=== PATIENT | female | born 1995 | race Caucasian/White ===

== ENCOUNTER 2016-07-18 09:35 | Outpatient (CLI) | payer OTHER, MEDICAID | END 2016-07-18 09:36 | disposition home or self-care (01) | DX: E03.9 Hypothyroidism, unspecified (principal); O99.013 Anemia complicating pregnancy, third trimester ==

== ENCOUNTER 2016-12-23 12:00 | Outpatient (CLI) | payer OTHER, MEDICAID | END 2016-12-23 12:01 | disposition critical access hospital (66) | LOC: EMS 12:00 | PROVIDERS: ATTEND Surgery | DX: S61.411A Laceration without foreign body of right hand, initial encounter (principal); W26.0XXA Contact with knife, initial encounter; Y93.G1 Activity, food preparation and clean up; Y92.009 Unspecified place in unspecified non-institutional (private) residence as the place of occurrence of the external cause | CPT/HCPCS: A0425; A0429 ==

== ENCOUNTER 2016-12-23 12:37 | Emergency (ER) | payer OTHER, MEDICAID ==
[2016-12-23 12:43] VITALS: BP 92/63
[2016-12-23] MEDS ORDERED: TETANUS/DIPHTHERIA/PERTUSSIS 0.5 ML SYRINGE IM ONE ×2 (12:44→12:55)
--- NOTE | 2016-12-23 13:15 | ED Physician Documentation ---
PD HPI UPPER EXT INJURY - Stated complaint Stated Complaint: R HAND LAC - Chief complaint Chief Complaint: Laceration - History obtained from History obtained from: Patient - History of Present Illness Location: Right, Hand Type of injury: Laceration Where injury occurred: Home Timing - onset: Today Timing - duration: Hours Timing - details: Abrupt onset, Still present Improved by: Rest, Immobilization Worsened by: Moving, Palpating Associated symptoms: Weakness, Numbness Contributing factors: No: Anticoagulated Similar symptoms before: Has not had sx before Recently seen: Not recently seen - Additonal information Additional information: 21-year-old female was preparing dinner for her family when she slipped with a polystyrene bead molder knife and cut the palm of her right hand. She has lacerated the palmar surface and is not able to flex the fourth or fifth digit and has numbness to both digits as well. Review of Systems Constitutional: denies: Fever Eyes: denies: Decreased vision Ears: denies: Ear pain Nose: denies: Congestion Throat: denies: Sore throat Cardiac: denies: Chest pain / pressure Respiratory: denies: Cough GI: denies: Vomiting : denies: Dysuria Skin: reports: Laceration (s). denies: Rash Musculoskeletal: reports: Extremity pain. denies: Neck pain, Back pain Neurologic: reports: Focal weakness, Numbness. denies: Generalized weakness PD PAST MEDICAL HISTORY - Past Medical History Cardiovascular: None Respiratory: None Endocrine/Autoimmune: None GI: Other : None HEENT: None Psych: Panic attacks Musculoskeletal: None Derm: None - Past Surgical History Past Surgical History: Yes - Present Medications Home Medications: Ambulatory Orders Medication Instructions Recorded Confirmed Doxylamine Succinate [Wal-Jhon] 25 mg PO Q6H PRN #30 tablet 12/08/15 Promethazine [Phenergan] 25 mg PO Q6H PRN #30 tab 12/08/15 Pyridoxine HCl [Vitamin B-6] 250 mg PO BID #60 tablet 12/08/15 Promethazine Sup [Phenergan Supp] 12.5 mg VA Q8H PRN #10 supp 12/19/15 - Allergies Allergies/Adverse Reactions: Allergies Allergy/AdvReac Type Severity Reaction Status Date / Time ondansetron HCl * AdvReac Nausea Verified 12/07/15 21:59 [From Zofran (as hydrochloride)] - Social History Does the pt smoke?: No Smoking Status: Former smoker Does the pt drink ETOH?: No Does the pt have substance abuse?: Yes - Immunizations Immunizations are current?: Yes - POLST Patient has POLST: No PD ED PE NORMAL - Vitals Vital signs reviewed: Yes (normal ) - General General: Alert and oriented X 3, Well developed/nourished - HEENT HEENT: Atraumatic, PERRL - Respiratory Respiratory: No respiratory distress - Derm Derm: Normal color, Warm and dry, No rash - Extremities Extremities: Other (over the palmar surface of the right hand there is a 3.5cm laceration over the distal 1/3 of the metacarpals that is deep. She is not able to flex the 4th or 5th digits and she has numbness to the 4th and 5th digits as well. ) - Neuro Neuro: Normal speech - Psych Psych: Normal mood, Normal affect Results - Vitals Vitals: Vital Signs - 24 hr 12/23/16 12:41 Temperature 36.8 C Heart Rate 87 Respiratory 18 Rate Blood Pressure 92/63 O2 Saturation 98 Oxygen O2 Source Room air - Rads (name of study) Right hand Radiology: Prelim report reviewed (Impression: Persistent extension of the fourth and fifth digits consistent with the given history. No fracture or radiopaque foreign body.), EMP read indepedently, See rad report Procedures - Splint (location) right wrist Splint applied by: Tech Type of splint: Fiberglass, Other (volar flexion splint) Other: Patient tolerated well, No complications, Neurovascular intact, Good alignment PD MEDICAL DECISION MAKING - ED course Complexity details: reviewed results, re-evaluated patient, considered differential, d/w patient, d/w family, d/w enterprise resource planning consultant (Dr. Horan was consulted and the case recommends consultation of hand surgery.) ED course: 21-year-old female otherwise healthy has lacerated her right hand deeply with laceration of the flexor tendons of #4 and 5 as well as digital nerves. She does appear to have good capillary refill and there does not appear to be arterial bleeding present And the patient confirms that at the scene there was no arterial bleeding present. She does have sensation to the radial surface of #4. Dr. Stevie Sotomayor plastic surgery from [facility] in [place] customer contact representative hand surgery is consulted in the case by telephone and he has accepted the patient in transfer to his office for evaluation today with the plan to operate tomorrow , potentially. He requests the patient be dressed with Xeroform and placed into a volar splint in flexion. Departure - Departure Disposition: 01 Home, Self Care Clinical Impression: Laceration of right hand involving tendon Qualifiers: Encounter type: initial encounter Qualified Code(s): S61.411A - Laceration without foreign body of right hand, initial encounter Condition: Stable Instructions: ED Laceration Tendon Follow-Up: Stevie Sotomayor MD [Physician No Access] - Comments: Follow up now with Dr. Stevie Sotomayor MD in [place]. [phone] [id number] [facility] [id number]. Do not eat or drink on your way to the doctors office.
--- NOTE | 2016-12-23 13:43 | XRAY Preliminary Report ---
Exam: XR Hand 3 View RT IMPRESSION: Persistent extension of the fourth and fifth digits consistent with the given history. No fracture or radiopaque foreign body. [facility] SITE ID: [id number]
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
[2016-12-23] MEDS ORDERED: HYDROcod/ACETAM 5/325 MG TABLET PO STA (13:47)
[2016-12-23] MEDS ORDERED: HYDROcod/ACETAM 5/325 MG TABLET ONE (13:49)
== END 2016-12-23 14:28 | disposition home or self-care (01) ==
LOC: EDUNIT# → ED 12:37
DX: S66.821A Laceration of other specified muscles, fascia and tendons at wrist and hand level, right hand, initial encounter (principal); S61.411A Laceration without foreign body of right hand, initial encounter; W26.0XXA Contact with knife, initial encounter; Y93.G1 Activity, food preparation and clean up; Y92.009 Unspecified place in unspecified non-institutional (private) residence as the place of occurrence of the external cause; Z23 Encounter for immunization; Z87.891 Personal history of nicotine dependence
CPT/HCPCS: 29125; 73130; 90471; 90715; 99283; 99284; A9270

== ENCOUNTER 2017-03-24 17:41 | Emergency (ER) | payer MEDICAID, OTHER ==
[2017-03-24 17:56] VITALS: BP 96/61
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
[2017-03-24] MEDS ORDERED: HYDROcod/ACETAM 5/325 MG TABLET PO STA (20:00)
[2017-03-24] MEDS ORDERED: HYDROcod/ACET 5/325 Prepack 6 PO ONE ×2 (20:00→20:16)
[2017-03-24] MEDS ORDERED: METHOCARBAMOL 500 MG TABLET PO STA (20:00)
[2017-03-24] MEDS ORDERED: METHOCARBAMOL 500 MG TABLET PO ONE (20:16)
[2017-03-24] MEDS ORDERED: HYDROcod/ACETAM 5/325 MG TABLET ONE (20:16)
--- NOTE | 2017-03-24 20:48 | XRAY Preliminary Report ---
Exam: XR Thoracic Spine 2 View IMPRESSION: Normal thoracic spine radiography. [facility] SITE ID: [id number]
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
== END 2017-03-24 22:48 | disposition home or self-care (01) ==
LOC: ED 17:41
DX: S20.222A Contusion of left back wall of thorax, initial encounter (principal); Y08.89XA Assault by other specified means, initial encounter; Y92.009 Unspecified place in unspecified non-institutional (private) residence as the place of occurrence of the external cause
CPT/HCPCS: 72070; 99283; A9270

== ENCOUNTER 2018-03-09 15:18 | Outpatient (CLI) | payer MEDICAID ==
--- NOTE | 2018-03-09 18:46 | Ultrasound Report ---
Reason: ENCOUNTER FOR PREGNANY TEST,RESULT POSITIVE Procedure Date: 03/09/2018 Accession Number: [id number] / [id number] Procedure: US - OB First Trimester CPT Code: FULL RESULT: EXAM: FIRST TRIMESTER OBSTETRIC ULTRASOUND (Less than 11 weeks) EXAM DATE: 03/09/2018 04:00 PM. CLINICAL HISTORY: Encounter for test, result positive. LMP: Unknown. COMPARISONS: None. TECHNIQUE: Transabdominal and transvaginal ultrasound examination with static image documentation. CLINICAL DATES: Unknown. ASSESSMENT: Gestational Sac: Single intrauterine. Embryo: CRL (crown-rump length) 77.2 mm = 13 weeks 5 days. Cardiac activity: 163 beats per minute. Yolk sac: None detected. Amniotic fluid: Not accurately assessed at this gestational age. Early placenta: Anterior placenta. No gross previa or abruption. Other: No perigestational fluid collection demonstrated. MATERNAL STRUCTURES: Uterus: Anteverted. Unremarkable. Cervix: Closed. Right Ovary/Adnexa: Ovary not seen. No adnexal abnormality. Limitation secondary to bowel gas. Left Ovary/Adnexa: Ovary not seen. No adnexal abnormality. Limitation secondary to bowel gas. Free Fluid: None. Unremarkable. Other: None. IMPRESSION: 1. Single viable intrauterine at EGA 13 weeks 5 days with NORA 09/09/2018. Unknown LMP. 2. Assigned dating is NORA 09/09/2018 based on current ultrasound. 3. No subchorionic hemorrhage or other concerning features. 4. Neither ovary was seen. No adnexal lesions concerning for an ectopic . [facility]
== END 2018-03-09 15:19 | disposition home or self-care (01) ==
LOC: DI 15:18
PROVIDERS: ATTEND Registered Nurse
DX: Z32.01 Encounter for pregnancy test, result positive (principal)
CPT/HCPCS: 76801

== ENCOUNTER 2018-03-23 09:49 | Emergency (ER) | payer MEDICAID ==
[2018-03-23 10:10] VITALS: BP 112/78
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
== END 2018-03-23 10:30 | disposition left against medical advice (07) ==
LOC: ED 09:49
DX: Z53.21 Procedure and treatment not carried out due to patient leaving prior to being seen by health care provider (principal)

== ENCOUNTER 2018-03-24 11:01 | Outpatient (CLI) | payer MEDICAID ==
[2018-03-24 11:53] LABS: BASOPHILS # (AUTO) 0.1 10^3/uL (0.0-0.1); BASOPHILS % (AUTO) 0.4 %; EOSINOPHILS % (AUTO) 0.1 %; HGB - HEMOGLOBIN 12.4 g/dL (12.0-16.0); LYMPHOCYTES # (AUTO) 4.1 10^3/uL (1.5-3.5); LYMPHOCYTES % (AUTO) 27.8 %; MEAN CORPUSCULAR HEMOGLOBIN 30.3 pg (27.0-31.0); MEAN CORPUSCULAR VOLUME 89.1 fL (81.0-99.0); MEAN PLATELET VOLUME 7.2 fL (7.9-10.8); MONOCYTES # (AUTO) 0.8 10^3/uL (0.0-1.0); MONOCYTES % (AUTO) 5.3 %; NEUTROPHILS # (AUTO) 9.7 10^3/uL (1.5-6.6); NEUTROPHILS % (AUTO) 66.4 %; PLT - PLATELET COUNT 381 10^3/uL (130-450); RED BLOOD COUNT 4.09 10^6/uL (4.20-5.40); RED CELL DISTRIBUTION WIDTH 13.1 % (12.0-15.0); WHITE BLOOD COUNT 14.6 x10^3/uL (4.8-10.8)
[2018-03-24 12:09] LABS: BILIRUBIN,URINE NEGATIVE (NEGATIVE); GLUCOSE, URINE (UA) NEGATIVE (NEGATIVE); KETONES,URINE (UA) NEGATIVE (NEGATIVE); LEUKOCYTE ESTERASE, URINE MODERATE (NEGATIVE); NITRITE,URINE NEGATIVE (NEGATIVE); OCCULT BLOOD,URINE NEGATIVE (NEGATIVE); PH,URINE 6.5 PH (5.0-7.5); PROTEIN,URINE NEGATIVE (NEGATIVE); UROBILINOGEN,URINE 0.2 (NORMAL) E.U./dL (NORMAL)
[2018-03-24 12:19] LABS: CLARITY,URINE HAZY (CLEAR)
[2018-03-24 12:20] LABS: BACTERIA,URINE Few /HPF (None Seen); MUCUS,URINE Moderate Strands; RBC,URINE 0-5 /HPF (0-5); SQUAMOUS EPITHELIAL CELL,UR MANY Squamous (<= Few)
[2018-03-24 13:46] LABS: T4 (THYROXINE) 10.18 ug/dL (6.09-12.23)
[2018-03-24 13:49] LABS: THYROID STIMULATING HORMONE 1.78 uIU/mL (0.34-5.60)
[2018-03-24 13:56] LABS: TOTAL T3 1.94 ng/mL (0.87-1.78)
[2018-03-25 13:22] LABS: HEPATITIS C ANTIBODY NON-REACTIVE (NON-REACTIVE)
[2018-03-25 14:51] LABS: HIV AG/AB 4TH GEN NON-REACTIVE (NON-REACTIVE)
[2018-03-25 15:06] LABS: HEPATITIS B SURFACE ANTIGEN NON-REACTIVE (NON-REACTIVE)
== END 2018-03-24 11:02 | disposition home or self-care (01) ==
LOC: LAB 11:01
PROVIDERS: ATTEND Nurse Practitioner Obstetrics & Gynecology
DX: Z34.81 Encounter for supervision of other normal pregnancy, first trimester (principal)
CPT/HCPCS: 36415; 80306; 81001; 81599; 84436; 84443; 84480; 85025; 86592; 86762; 86803; 86850; 86900; 86901; 87340; 87389

== ENCOUNTER 2018-03-24 11:17 | Outpatient (CLI) | payer MEDICAID ==
[2018-03-24 14:22] LABS: MUDS CUTOFF CONCENTRATIONS CUTOFF CONC BELOW:
[2018-03-24 14:43] LABS: AMPHETAMINE SCREEN,URINE POSITIVE (NEGATIVE); BENZODIAZEPINES SCREEN, URINE NEGATIVE (NEGATIVE); COCAINE SCREEN URINE NEGATIVE (NEGATIVE); METHADONE SCREEN, URINE NEGATIVE (NEGATIVE); METHAMPHETAMINES SCREEN, URINE POSITIVE (NEGATIVE); OPIATE SCREEN, URINE NEGATIVE (NEGATIVE); OXYCODONE SCREEN, URINE NEGATIVE (NEGATIVE); PROPOXYPHENE SCREEN, URINE NEGATIVE (NEGATIVE); TRICYCLIC ANTIDEPRESSANT,URINE NEGATIVE (NEGATIVE)
== END 2018-03-24 11:18 | disposition home or self-care (01) ==
LOC: LAB.R 11:17
PROVIDERS: ATTEND Nurse Practitioner Obstetrics & Gynecology
DX: Z34.81 Encounter for supervision of other normal pregnancy, first trimester (principal)
CPT/HCPCS: 80306

== ENCOUNTER 2018-04-26 12:41 | Outpatient (CLI) | payer MEDICAID ==
--- NOTE | 2018-04-27 14:15 | Ultrasound Report ---
Reason: ENCTR FOR SCREENING Procedure Date: 04/26/2018 Accession Number: [id number] / [id number] Procedure: US - OB Detailed Eval CPT Code: FULL RESULT: EXAM: COMPLETE OBSTETRICAL ULTRASOUND EXAM DATE: 04/26/2018 03:16 PM. CLINICAL HISTORY: anatomic survey. COMPARISON: None. TECHNIQUE: Real-time sonographic evaluation of the fetus performed by the saturation diver. Multiple textile designs sales representative static images were saved for review. DATING: Established EGA 20 weeks 4 days with NORA 09/09/2018 based on prior ultrasound. EGA 19 weeks 4 days with NORA 09/16/2018 based on the current ultrasound. GENERAL EVALUATION Thompson . Cardiac activity: 148 bpm. movement: Visualized. Presentation: Cephalic. Placenta: Anterior position. No evidence for previa. Umbilical cord: 3 vessel cord. Central placental cord origin. Amniotic fluid: CRYSTAL 11.6 MVP 3.6 cm. BIOMETRY Bi-Parietal Diameter (BPD): 4.4 cm, 19 weeks 2 days Head Circumference (HC): 16.6 cm, 19 weeks 2 days Abdominal Circumference (AC): 13.8 cm, 19 weeks 2 days Femur Length (FL): 3.3 cm, 20 weeks 3 days Estimated Weight: 311 g, 12th percentile for 20 weeks 4 days. ANATOMY The intracranial structures, profile, face/nose/lips, spine, 4 chamber heart and outflow tracts, stomach, abdominal wall and cord insertion, diaphragm, kidneys, bladder, and extremities were visualized and demonstrate no abnormality. MATERNAL STRUCTURES Uterus: Unremarkable. Cervix: Long and closed. Transabdominal length 4.2 cm. Right ovary/adnexa: Unremarkable. Left ovary/adnexa: Unremarkable. Free fluid: None. IMPRESSION: 1. Thompson live intrauterine with gestational age 20 weeks 4 days based on the established due date from the initial ultrasound. 2. The estimated weight is at the lower limits of normal. While this does not meet criteria for IUGR at this time, consideration could be given to interval ultrasound follow-up if clinically indicated. 3. Normal anatomic survey. No anatomic abnormalities are detected at this time. HONEY The above findings of low estimated weight were discussed with the office of [facility] Del Valle by Dr. Kermit Webster at 14:13 hrs on 04/27/18.
== END 2018-04-26 12:42 | disposition home or self-care (01) ==
LOC: DI 12:41
PROVIDERS: ATTEND Nurse Practitioner Obstetrics & Gynecology
DX: Z36.9 Encounter for antenatal screening, unspecified (principal)
CPT/HCPCS: 76811

== ENCOUNTER → 2018-08-27 | Outpatient (CLI) | payer MEDICAID | END | disposition short-term general hospital (02) | LOC: EMS 15:12 | PROVIDERS: ATTEND Surgery | DX: R10.9 Unspecified abdominal pain (principal) ==

== ENCOUNTER 2019-08-24 11:24 | Emergency (ER) | payer MEDICAID, OTHER ==
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
[2019-08-24 13:10] VITALS: BP 114/88
== END 2019-08-24 13:17 | disposition home or self-care (01) ==
LOC: ED 11:24
DX: S01.01XA Laceration without foreign body of scalp, initial encounter (principal); W22.8XXA Striking against or struck by other objects, initial encounter; F17.200 Nicotine dependence, unspecified, uncomplicated
CPT/HCPCS: 12001; 99282; 99284

== ENCOUNTER 2020-09-12 07:00 | Outpatient (CLI) | payer MEDICAID, OTHER ==
--- NOTE | 2020-09-12 18:41 | XRAY Report ---
PROCEDURE: Chest 2 View X-Ray INDICATIONS: CHRONIC COUGH TECHNIQUE: 2 view(s) of the chest. COMPARISON: None. FINDINGS: Surgical changes and devices: None. Lungs and pleura: No pleural effusions or pneumothorax. Lungs are clear. Mediastinum: Mediastinal contours are normal. Heart size is normal. Bones and chest wall: No suspicious bony abnormalities. Soft tissues appear unremarkable. IMPRESSION: No acute cardiopulmonary process demonstrated radiographically. Reviewed by: Massimo Espino MD on 09/12/2020 6:40 PM PDT Approved by: Massimo Espino MD on 09/12/2020 6:40 PM PDT Station ID: [id number]
== END 2020-09-12 23:59 | disposition home or self-care (01) ==
LOC: DI.N 07:00
PROVIDERS: ATTEND Nurse Practitioner
DX: R05 Cough (principal)

== ENCOUNTER 2021-12-13 13:47 | Outpatient (CLI) | payer MEDICAID ==
--- NOTE | 2021-12-13 14:40 | XRAY Report ---
PROCEDURE: Foot 3 View RT INDICATIONS: CONTUSION OF RIGHT FOOT TECHNIQUE: 3 views of the foot were acquired. COMPARISON: None. FINDINGS: Bones: Moderate hallux valgus is seen. There is a slightly comminuted fractures involving mid shaft o f second metatarsal bone with medial and dorsal displacement at fracture site. No other fracture or d islocation is seen. No suspicious bony lesions. Soft tissues: No tibiotalar joint effusion. Achilles tendon appears normal. IMPRESSION: Comminuted and slightly displaced second metatarsal shaft fracture as above. Moderate hallux valgus. Reviewed by: Lewis Will MD on 12/13/2021 2:38 PM PDT Approved by: Lewis Will MD on 12/13/2021 2:38 PM PDT Station ID: [id number]
== END 2021-12-13 13:48 | disposition home or self-care (01) ==
LOC: DI 13:47
PROVIDERS: ATTEND Physician Assistant
DX: S92.321A Displaced fracture of second metatarsal bone, right foot, initial encounter for closed fracture (principal); M20.11 Hallux valgus (acquired), right foot

== ENCOUNTER 2022-11-29 21:51 | Emergency (ER) | payer MEDICAID ==
[2022-11-29 22:01] VITALS: BP 130/88
[2022-11-29] MEDS ORDERED: IPRATROPIUM/ALBUTEROL 3 ML NEB INH STA (22:14)
--- NOTE | 2022-11-29 22:14 | ED Physician Documentation ---
PD HPI HEENT - Stated complaint Stated Complaint: SORE THROAT,HEADACHE - Chief complaint Chief Complaint: Heent - History obtained from History obtained from: Patient - History of Present Illness Timing - onset: How many days ago (2) Timing - duration: Days (2) Timing - details: Gradual onset, Still present Location: Throat Improves: Medication Worsens: Swalllowing Associated symptoms: Congestion, Rhinorrhea, Cough. No: Fever Similar symptoms before: Diagnosis (pharyngitis) Recently seen: Not recently seen - Additional information Additional information: 27-year-old Paris Calderon has a history of asthma and she has developed a sore throat over the past 2 days while her and her have been moving. She has a bit of a cough with this she feels like she could use an inhaler and she does not have 1. She has not had a fever she has pain with swallowing and she is tested negative for COVID. Review of Systems Constitutional: denies: Fever, Chills Eyes: denies: Decreased vision Ears: denies: Ear pain Nose: reports: Rhinorrhea / runny nose, Congestion Throat: reports: Sore throat Cardiac: denies: Chest pain / pressure, Palpitations Respiratory: reports: Cough, Wheezing. denies: Dyspnea GI: denies: Abdominal Pain, Nausea, Vomiting, Constipation, Diarrhea : denies: Dysuria, Frequency PD PAST MEDICAL HISTORY - Past Medical History Cardiovascular: None Respiratory: None Endocrine/Autoimmune: None GI: Other : None HEENT: None Psych: Panic attacks Musculoskeletal: None Derm: None - Past Surgical History Past Surgical History: Yes - Present Medications Home Medications: Ambulatory Orders Medication Instructions Recorded Confirmed Albuterol Sulf [Ventolin Hfa 1 - 2 puffs INH Q4HR PRN #1 each 11/29/22 Inhaler] - Allergies Allergies/Adverse Reactions: Allergies Allergy/AdvReac Type Severity Reaction Status Date / Time ondansetron HCl * AdvReac Nausea Verified 11/29/22 22:12 [From Zofran (as hydrochloride)] - Social History Does the pt smoke?: No Smoking Status: Current every day smoker Does the pt drink ETOH?: No Does the pt have substance abuse?: Yes - Immunizations Immunizations are current?: No - POLST Patient has POLST: No PD ED PE NORMAL - Vitals Vital signs reviewed: Yes (Tachycardic and hypertensive) - General General: Alert and oriented X 3, No acute distress, Well developed/nourished, Other (The patient is covered in soot and smells of campfire) - HEENT HEENT: Atraumatic, PERRL, EOMI, Ears normal (The pharynx is with mild inflammation to both tonsils small crypts without exudate), Other - Neck Neck: Supple, no meningeal sign, No bony TTP - Cardiac Cardiac: RRR, No murmur - Respiratory Respiratory: No respiratory distress, Other (End inspiratory wheeze bibasilar) - Abdomen Abdomen: Soft, Non tender - Back Back: No CVA TTP, No spinal TTP - Derm Derm: Normal color, Warm and dry, No rash - Extremities Extremities: No deformity, No edema - Neuro Neuro: Alert and oriented X 3, 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, No motor deficit, No sensory deficit, Normal speech Eye Opening: Spontaneous Motor: Obeys Commands Verbal: Oriented GCS Score: 15 - Psych Psych: Normal mood, Normal affect Results - Vitals Vitals: Vital Signs - 24 hr 11/29/22 11/29/22 21:55 22:25 Temperature 37.1 C Heart Rate 114 H 118 H Respiratory 18 18 Rate Blood Pressure 130/88 H O2 Saturation 98 Oxygen O2 Source Room air - Labs Labs: Laboratory Tests 11/29/22 22:07 Group A Strep Rapid Negative PD Medical Decision Making - ED course Complexity details: reviewed old records, reviewed results, re-evaluated patient, considered differential, d/w patient Reviewed Lab Results: We did check a rapid strep which was negative. ED course: 27-year-old female presents to the emergency department with a sore throat cough and wheezing. She appears to have a viral pharyngitis with minimal exudate to the tonsils, a sore throat, and a negative rapid strep. She does appear to have some diminished breath sounds and she is administered dexamethasone and a DuoNeb treatment with improvement. Departure - Departure Disposition: 01 Home, Self Care Clinical Impression: Viral URI with cough, Acute viral pharyngitis Condition: Stable Instructions: ED Pharyngitis Viral Report Pending Follow-Up: [facility] [Provider Group] Prescriptions: Albuterol Sulf [Ventolin Hfa Inhaler] 1 - 2 puffs INH Q4HR PRN #1 each PRN Reason: Shortness Of Air/Wheezing Comments: Carrie, today your rapid strep was negative and a culture is pending. This looks like viral pharyngitis and we have given you a dose of dexamethasone which should help with your breathing later on tonight and should last 2 days. Our expectations with treatment are improvement but with continued symptoms for the next week. Be certain to use additional fluids and Tylenol as needed. I have E scribed an albuterol inhaler to the [facility] in [place]. Discharge Date/Time: 11/29/22 22:46
[2022-11-29 22:20] LABS: RAPID STREP SCREEN Negative (Negative)
[2022-11-29] MEDS ORDERED: DEXAMETHASONE 10 MG/ML VIAL PO STA (22:36)
[2022-11-29] MEDS ORDERED: CHERRY SYRUP 10 ML UDC PO ONE (22:36)
== END 2022-11-29 22:46 | disposition home or self-care (01) ==
LOC: ED 21:51
DX: J06.9 Acute upper respiratory infection, unspecified (principal); J02.9 Acute pharyngitis, unspecified; F17.200 Nicotine dependence, unspecified, uncomplicated
CPT/HCPCS: 87070; 87430; 94640; 94664; 99283; A9270

== ENCOUNTER 2023-08-07 07:18 | Emergency (ER) | payer MEDICAID ==
[2023-08-07 07:33] VITALS: O2SAT 99
[2023-08-07] MEDS: ACETAMINOPHEN 325 MG TABLET PO STA (07:47)
--- NOTE | 2023-08-07 07:49 | ED Physician Documentation ---
PD HPI LOWER EXT INJURY - Stated complaint Stated Complaint: LT ANKLE PX - Chief complaint Chief Complaint: Ext Problem - History obtained from History obtained from: Patient - Additional information Additional information: Patient is a 27-year-old female with no significant past medical history presenting for evaluation of left ankle injury that occurred around 5 PM last night. Patient states that she was cleaning a trailer when she accidentally stepped on something and rolled her ankle. She states that the pain did not start until a few hours ago and hurts now to ambulate. She has not tried anything for the pain. No ice. Denies head injury. Review of Systems Musculoskeletal: reports: Extremity pain Neurologic: denies: Head injury PD PAST MEDICAL HISTORY - Past Medical History Cardiovascular: None Respiratory: None Endocrine/Autoimmune: None GI: Other : None HEENT: None Psych: Panic attacks Musculoskeletal: None Derm: None - Past Surgical History Past Surgical History: Yes - Present Medications Home Medications: Ambulatory Orders Medication Instructions Recorded Confirmed No Known Home Medications 08/07/23 08/07/23 - Allergies Allergies/Adverse Reactions: Allergies Allergy/AdvReac Type Severity Reaction Status Date / Time ondansetron HCl * AdvReac Nausea Verified 08/07/23 07:26 [From Zofran (as hydrochloride)] - Social History Does the pt smoke?: No Smoking Status: Current every day smoker Does the pt drink ETOH?: No Does the pt have substance abuse?: Yes - Immunizations Immunizations are current?: No - POLST Patient has POLST: No PD ED PE NORMAL - General General: Alert and oriented X 3, No acute distress, Well developed/nourished - HEENT HEENT: Atraumatic - Cardiac Cardiac: Strong equal pulses - Respiratory Respiratory: No respiratory distress - Derm Derm: Warm and dry - Extremities Extremities: Other (Mild swelling And tenderness to the left lateral malleolus, no tenderness over foot, distal pulses intact, No open wounds, compartments of foot and lower extremity are soft, motor and sensation grossly intact) - Neuro Neuro: Alert and oriented X 3, No motor deficit, Normal speech Results - Vitals Vitals: Vital Signs - 24 hr 08/07/23 08/07/23 07:22 09:14 Temperature 36.9 C 37.0 C Heart Rate 102 H 94 Respiratory 16 14 Rate Blood Pressure 113/66 108/75 O2 Saturation 99 99 Oxygen O2 Source Room air PD Medical Decision Making - ED course Complexity details: reviewed results, d/w patient ED course: Patient presenting for evaluation of left ankle injury. Neurovascularly intact with no significant deformity on exam. X-ray was obtained which I reviewed I see no fracture or dislocation. Patient was given an Aircast and crutches counseled on supportive care as well as need for follow-up if symptoms or not improving.No head injury or pain elsewhere. Departure - Departure Disposition: Home, Self Care Clinical Impression: Left ankle sprain Condition: Stable Instructions: ED Sprain Ankle Comments: The x-ray of your left ankle does not show a fracture or dislocation. You may have a sprain which is causing your pain. Continue using the Aircast and crutches as long as you are having pain with walking. Continue with ice, anti- inflammatory such as acetaminophen or ibuprofen, elevation. If your pain is not getting better over the course of the next week then I would recommend follow-up with your primary care provider or the walk-in clinic. Forms: PCP List Discharge Date/Time: 08/07/23 09:14
--- NOTE | 2023-08-07 08:04 | XRAY Report ---
PROCEDURE: Ankle 3+V LT INDICATIONS: rolled ankle/lateral pain TECHNIQUE: 3 views of the ankle were acquired. COMPARISON: None. FINDINGS: Bones: No fractures or dislocations. Ankle mortise is normally aligned. No suspicious bony lesions . Soft tissues: No tibiotalar joint effusion. Achilles tendon appears normal. IMPRESSION: No visualized acute fracture or dislocation. However, occult injury cannot be excluded. Recommend melody rt interval imaging follow-up in 7-10 days as clinically indicated for additional evaluation. Reviewed by: Velia Osorio MD on 08/07/2023 8:03 AM [facility] Approved by: Velia Osorio MD on 08/07/2023 8:03 AM PST Station ID: [id number]
[2023-08-07 09:17] VITALS: BP 108/75
== END 2023-08-07 09:14 | disposition home or self-care (01) ==
LOC: ED 07:18
DX: S93.402A Sprain of unspecified ligament of left ankle, initial encounter (principal); X50.1XXA Overexertion from prolonged static or awkward postures, initial encounter; Y93.E9 Activity, other interior property and clothing maintenance; F17.200 Nicotine dependence, unspecified, uncomplicated
CPT/HCPCS: 73610; 99283; A9270

== ENCOUNTER 2023-09-17 13:40 | Emergency (ER) | payer MEDICAID ==
[2023-09-17 14:06] VITALS: BP 120/75; O2SAT 98
--- NOTE | 2023-09-17 14:22 | ED Physician Documentation ---
PD HPI URI - Stated complaint Stated Complaint: COUGH - Chief complaint Chief Complaint: Resp - History obtained from History obtained from: Patient - Additional information Additional information: Patient is a 27-year-old female presenting for evaluation of cough that she states been ongoing for 3 years. Patient also admits to tobacco use for several years. States that the cough is on and off but she has it more often than not. It has been worse the last 3 days. Denies sputum production. No hemoptysis. Has not tried anything for her symptoms. Denies a known history of asthma. Review of Systems Constitutional: denies: Fever Nose: reports: Congestion Cardiac: denies: Chest pain / pressure Respiratory: reports: Cough GI: denies: Abdominal Pain, Vomiting PD PAST MEDICAL HISTORY - Past Medical History Cardiovascular: None Respiratory: None Endocrine/Autoimmune: None GI: Other : None HEENT: None Psych: Panic attacks Musculoskeletal: None Derm: None - Past Surgical History Past Surgical History: Yes - Present Medications Home Medications: Ambulatory Orders Medication Instructions Recorded Confirmed Albuterol Sulf [Ventolin Hfa 1 - 2 puffs INH Q4HR PRN #1 each 09/17/23 Inhaler] - Allergies Allergies/Adverse Reactions: Allergies Allergy/AdvReac Type Severity Reaction Status Date / Time ondansetron HCl * AdvReac Nausea Verified 09/17/23 13:58 [From Zofran (as hydrochloride)] - Social History Does the pt smoke?: No Smoking Status: Current every day smoker Does the pt drink ETOH?: No Does the pt have substance abuse?: Yes - Immunizations Immunizations are current?: No - POLST Patient has POLST: No PD ED PE NORMAL - General General: Alert and oriented X 3, No acute distress, Well developed/nourished - HEENT HEENT: Atraumatic, Moist mucous membranes, Pharynx benign - Neck Neck: Supple, no meningeal sign - Cardiac Cardiac: RRR, Strong equal pulses - Respiratory Respiratory: No respiratory distress, Clear bilaterally - Derm Derm: Warm and dry - Neuro Neuro: Normal speech Results - Vitals Vitals: Vital Signs - 24 hr 09/17/23 09/17/23 13:51 15:13 Temperature 36.8 C Heart Rate 87 Respiratory 17 16 Rate Blood Pressure 120/75 O2 Saturation 98 98 Oxygen O2 Source Room air PD Medical Decision Making - ED course Complexity details: reviewed results, d/w patient ED course: Patient with c/o "cough for years". Comes and goes and current episode present for few days. Non productive. On no medications. Does use tobacco. Pt declines COVID testing. Lungs clear and no coughing here. Chest XR negative for pneumonia or mass. Discussed etiologies including allergies, cough variant asthma, viral illness. Pt agreeable to trial with albuterol inhaler and understands importance of PCP follow up. Encouraged tobacco cessation. VSS. Departure - Departure Disposition: 01 Home, Self Care Clinical Impression: Cough, Tobacco abuse Condition: Stable Instructions: ED Smoking Cessation Prescriptions: Albuterol Sulf [Ventolin Hfa Inhaler] 1 - 2 puffs INH Q4HR PRN #1 each PRN Reason: Shortness Of Air/Wheezing Comments: Your chest x-ray does not show any signs of pneumonia or collapsed lung. Your cough could be related to a number of conditions Including a virus or from tobacco use. I would recommend trying to cut down on your cigarette use. Please follow-up with your primary care doctor walk-in clinic as needed. I sent a prescription for albuterol inhaler to the [facility] pharmacy. Return to the ER with any worsening symptoms. Forms: PCP List Discharge Date/Time: 09/17/23 15:08
--- NOTE | 2023-09-17 14:58 | XRAY Report ---
PROCEDURE: Chest 1V INDICATIONS: cough x years TECHNIQUE: One view of the chest was acquired. COMPARISON: 10/22/2013. FINDINGS: Surgical changes and devices: None. Lungs and pleura: No pleural effusions or pneumothorax. Lungs are clear. Mediastinum: Mediastinal contours appear normal. Heart size is normal. Bones and chest wall: No suspicious bony lesions. Overlying soft tissues appear unremarkable. IMPRESSION: No acute cardiopulmonary process. Reviewed by: Lewis Will MD on 09/17/2023 2:56 PM PDT Approved by: Lewis Will MD on 09/17/2023 2:56 PM PDT Station ID: [id number]
== END 2023-09-17 15:08 | disposition home or self-care (01) ==
LOC: ED 13:40
DX: R05.9 Cough, unspecified (principal); Z72.0 Tobacco use
CPT/HCPCS: 99283

== ENCOUNTER 2023-11-22 17:33 | Emergency (ER) | payer MEDICAID ==
--- NOTE | 2023-11-22 17:51 | ED Physician Documentation ---
PD HPI UPPER EXT INJURY - Stated complaint Stated Complaint: L HAND DOG BITE - Chief complaint Chief Complaint: Trauma Ext - History obtained from History obtained from: Patient - Additonal information Additional information: 28-year-old woman with unknown tetanus status was bitten to the left arm and hand by a dog while walking down the street. Happened just prior to arrival. Pain is severe. PD PAST MEDICAL HISTORY - Past Medical History Cardiovascular: None Respiratory: None Endocrine/Autoimmune: None GI: Other : None HEENT: None Psych: Panic attacks Musculoskeletal: None Derm: None - Past Surgical History Past Surgical History: Yes - Present Medications Home Medications: Ambulatory Orders Medication Instructions Recorded Confirmed Albuterol Sulf [Ventolin Hfa 1 - 2 puffs INH Q4HR PRN #1 each 09/17/23 11/22/23 Inhaler] Amox/Clav 875/125 [Augmentin] 1 each PO Q12H #14 tablet 11/22/23 Bacitracin Zinc Oint 1 applic TOP BID #1 each 11/22/23 Oxycodone HCl/Acetaminophen 1 - 2 each PO Q6H PRN #10 tablet 11/22/23 [Percocet 5-325 mg Tablet] - Allergies Allergies/Adverse Reactions: Allergies Allergy/AdvReac Type Severity Reaction Status Date / Time ondansetron HCl * AdvReac Nausea Verified 11/22/23 17:45 [From Zofran (as hydrochloride)] - Social History Does the pt smoke?: No Smoking Status: Never smoker Does the pt drink ETOH?: No Does the pt have substance abuse?: Yes - Immunizations Immunizations are current?: No - POLST Patient has POLST: No PD ED PE NORMAL - Vitals Vital signs reviewed: Yes - General General: Alert and oriented X 3, Other (Tearful and anxious) - Extremities Extremities: Other (see mdm txt box too small) Results - Vitals Vitals: Vital Signs - 24 hr 11/22/23 17:37 Temperature 36.4 C L Heart Rate 130 H Respiratory 18 Rate Blood Pressure 147/92 H O2 Saturation 100 Oxygen O2 Source Room air - Rads (name of study) Three-view x-ray of the left hand was negative for fracture or foreign body. Relevant Findings:: Final report received, EMP independent interpretation of test Procedures - Laceration (location) L palm Length in cm: 4 Wound type: Other (There were multiple lacerations but there were 2 on the palm that were 2 cm each necessitating "closure) Neurovascular status: Sensory intact, Motor intact Tendon involvement: Tendon intact Anesthesia: Lidocaine 1%, With bicarb, Other (I did first blocks of all 3 nerves to the hand at the wrist with good anesthesia and then some extra and the wounds being closed.) Wound preparation: Hibiclens, Irrigated copiously NS Skin layer closure: Nylon, Interrupted, Size #-0 - enter number (4-0), Sutures - enter # (4) Other: Patient tolerated well, No complications, Neurovascular intact, Tetanus booster given PD Medical Decision Making - ED course ED course: L hand: There are almost innumerable lacerations and puncture wounds over the left hand, both sides. There are also 2 shallow lacerations on the lateral upper arm. On the left hand there are 2 lacerations that are big enough and gaping enough to merit closure. No problem with tendon function in any finger nor neurovascular compromise. MDM: She has extensive lacerations and puncture wounds on the left from a dog bite. 2 required closure and these were closed after pain control with both oxycodone and Motrin as well as nerve blocks at the wrist. This allowed for better irrigation as well. She was counseled on wound care and follow-up precautions. She was started on Augmentin. Departure - Departure Disposition: 01 Home, Self Care Clinical Impression: Dog bite of multiple sites of hand and fingers Qualifiers: Encounter type: initial encounter Laterality: left Qualified Code(s): S61.452A - Open bite of left hand, initial encounter Condition: Good Record reviewed to determine appropriate education?: Yes Instructions: ED Bite Dog Prescriptions: Amox/Clav 875/125 [Augmentin] 1 each PO Q12H #14 tablet Bacitracin Zinc Oint 1 applic TOP BID #1 each Oxycodone HCl/Acetaminophen [Percocet 5-325 mg Tablet] 1 - 2 each PO Q6H PRN #10 tablet PRN Reason: pain Comments: I sent your prescription electronically [facility] at [facility] [address] [address] [facility] [place]. He can keep the current dressings on until tomorrow evening or Thursday morning. At which point you should take the dressing down wash briefly with soap and water. Recommend you follow-up with the urgent care or here Thursday or Thursday for wound check and in 14 days for suture removal. For wound care, he can wash briefly with soap and water, then apply bacitracin ointment which I am prescribing, and then nonstick dressing such as Telfa and a loose wrap. Elevation will also help with pain. I am prescribing a short course of narcotic pain medication for you. These are potentially dangerous and addictive medications that should be used carefully. These medications may constipate you. Take an doyo-ivl-kaygjdi stool softener (docusate) twice daily with plenty of water while taking these medications. If you go 24 hours without a bowel movement, take [id number] miralax, per package instructions. Do not drink or drive while taking these medications. If you received narcotic or sedating medications while in the emergency department, do not drive for 24 hours. Store this medication in a safe, secure place and out of reach of children. It is a violation of federal law to give or sell this medication to another person or to use in a manner other than prescribed. The ED will not refill narcotic prescriptions, including prescriptions lost or stolen. To dispose of unwanted medications: 1. [facility] provides a drop box for medication in pill form only (no liquids) 8:00 am to 4:30 p.m. Thursday-Thursday in the lobby of the [facility], [address] [place] [address]. Empty pills into ziplock bag before disposal. Call [phone] for information. 2.[employer] is a free service available to all [facility] residents. Go to [email or web address] Note that many narcotic pain relievers also contain Tylenol/acetaminophen. Please ensure that your total dose of acetaminophen from all sources does not exceed 3 g (3000 mg) per day. Forms: PCP List
[2023-11-22 17:52] VITALS: O2SAT 100
[2023-11-22] MEDS: oxyCODONE 5 MG TABLET PO STA (18:01)
[2023-11-22] MEDS: AMOX/CLAV 875 MG/125 MG TABLET PO STA (18:01)
[2023-11-22] MEDS: IBUPROFEN 600 MG TABLET PO STA (18:02)
[2023-11-22] MEDS: TETANUS/DIPHTHERIA/PERTUSSIS 0.5 ML SYRINGE IM ONE (18:02)
[2023-11-22] MEDS: BUFFERED LIDOCAINE 10 ML SYRINGE SUBQ STA (18:23)
--- NOTE | 2023-11-22 18:45 | XRAY Report ---
PROCEDURE: Hand 3+V RT INDICATIONS: mult dog bites TECHNIQUE: 3 views of the hand(s) acquired. COMPARISON: None. FINDINGS: Bones: No fractures or dislocations. No suspicious bony lesions. Soft tissues: No suspicious soft tissue calcifications or masses. Multiple soft tissue lucency con sistent with wounds. No radiodense foreign body detected in the soft tissues. IMPRESSION: No acute bony abnormality. Multiple soft tissue lucencies consistent with wounds. No radiodense foreign body identified. Reviewed by: Randee Styles MD, PhD on 11/22/2023 5:44 PM DONNIE Approved by: aRndee Styles MD, PhD on 11/22/2023 5:44 PM DONNIE Station ID: [id number]
[2023-11-22] MEDS: oxyCODONE/ACET 5/325 Prepack 4 PO STA (19:01)
[2023-11-22 19:27] VITALS: BP 90/67
== END 2023-11-22 19:23 | disposition home or self-care (01) ==
LOC: ED 17:33
DX: S61.452A Open bite of left hand, initial encounter (principal); Z23 Encounter for immunization; W54.0XXA Bitten by dog, initial encounter
CPT/HCPCS: 12002; 73130; 90471; 90715; 99283; 99284; A9270

== ENCOUNTER 2023-12-28 07:41 | Emergency (ER) | payer MEDICAID ==
[2023-12-28 07:55] VITALS: O2SAT 100
[2023-12-28] MEDS: KETOROLAC 30 MG/ML VIAL IVP STA (08:52)
[2023-12-28] MEDS: SODIUM CHLORIDE 0.9% 1,000 ML IV STA (08:52)
[2023-12-28 08:58] LABS: BASOPHILS # (AUTO) 0.1 10^3/uL (0.0-0.1); BASOPHILS % (AUTO) 0.5 %; EOSINOPHILS # (AUTO) 0.1 10^3/uL (0.0-0.7); EOSINOPHILS % (AUTO) 0.5 %; HCT - HEMATOCRIT 37.6 % (37.0-47.0); HGB - HEMOGLOBIN 11.9 g/dL (12.0-16.0); LYMPHOCYTES # (AUTO) 2.2 10^3/uL (1.5-3.5); LYMPHOCYTES % (AUTO) 16.6 %; MEAN CORPUSCULAR HEMOGLOBIN 26.6 pg (27.0-31.0); MEAN CORPUSCULAR HGB CONC 31.6 g/dL (32.0-36.0); MEAN CORPUSCULAR VOLUME 83.9 fL (81.0-99.0); MEAN PLATELET VOLUME 9.3 fL (7.9-10.8); MONOCYTES # (AUTO) 0.8 10^3/uL (0.0-1.0); MONOCYTES % (AUTO) 6.1 %; NEUTROPHILS # (AUTO) 9.8 10^3/uL (1.5-6.6); PLT - PLATELET COUNT 403 10^3/uL (130-450); RED BLOOD COUNT 4.48 10^6/uL (4.20-5.40); RED CELL DISTRIBUTION WIDTH 14.9 % (12.0-15.0); WHITE BLOOD COUNT 12.9 x10^3/uL (4.8-10.8)
[2023-12-28 09:18] LABS: BILIRUBIN,URINE NEGATIVE (NEGATIVE); GLUCOSE, URINE (UA) NEGATIVE (NEGATIVE); KETONES,URINE (UA) NEGATIVE (NEGATIVE); LEUKOCYTE ESTERASE, URINE TRACE (NEGATIVE); NITRITE,URINE POSITIVE (NEGATIVE); OCCULT BLOOD,URINE MODERATE (NEGATIVE); PH,URINE 5.5 PH (5.0-7.5); PROTEIN,URINE NEGATIVE (NEGATIVE); UROBILINOGEN,URINE 0.2 (NORMAL) E.U./dL (NORMAL)
[2023-12-28 09:23] LABS: CLARITY,URINE CLEAR (CLEAR); HCG UR QUAL NEGATIVE
[2023-12-28 09:32] LABS: BACTERIA,URINE Moderate /HPF (None Seen); SQUAMOUS EPITHELIAL CELL,UR MOD Squamous (<= Few)
[2023-12-28 09:45] LABS: ALBUMIN 4.2 g/dL (3.2-5.5); ALBUMIN/GLOBULIN RATIO 1.4 (1.0-2.2); BILIRUBIN,TOTAL 0.2 mg/dL (0.2-1.0); CALCIUM 9.6 mg/dL (8.5-10.3); CREATININE 0.8 mg/dL (0.6-1.3); POTASSIUM 4.1 mmol/L (3.5-4.5); TOTAL PROTEIN 7.2 g/dL (6.4-8.9)
--- NOTE | 2023-12-28 10:11 | CT Report ---
PROCEDURE: Abdomen/Pelvis WO INDICATIONS: R flank pain TECHNIQUE: A CT scan of the abdomen and pelvis was performed without the use of intravenous contrast. Images we re recorded and evaluated at appropriate window settings. Reformats: coronal and sagittal. For radiat ion dose reduction, the following was used: automated exposure control, adjustment of mA and/or kV ac cording to patient size. COMPARISON: None. FINDINGS: Image quality: Diagnostic. Lower chest: Unremarkable. Liver: No contour-deforming mass. Gallbladder: Multiple luminal stones without wall thickening. Biliary tree: No intrahepatic or extrahepatic dilation, accounting for age. Spleen: No splenomegaly. Pancreas: No pancreatic ductal dilation. Adrenals: No adrenal nodule. Kidneys and ureters: No hydronephrosis. No contour-deforming mass. Stomach, bowel and peritoneum: No gastric or small bowel dilation. No abnormal wall thickening. No pa thologic free fluid. Prominent colonic stool. Lymph nodes: No central or retroperitoneal adenopathy. Vessels: No infrarenal aortic aneurysm. Reproductive organs: Unremarkable. Bladder: Bladder wall thickness is normal, accounting for underdistention. No calcified bladder stone s. Pelvic lymph nodes: No adenopathy by size criteria. Bones: No aggressive osseous abnormality. Other: No significant ventral or inguinal hernia. IMPRESSION: Cholelithiasis without. No renal or ureteral calculi. Moderate colonic stool Reviewed by: Velia Osorio MD on 12/28/2023 10:09 AM PDT Approved by: Velia Osorio MD on 12/28/2023 10:09 AM PDT Station ID: [id number]
--- NOTE | 2023-12-28 10:22 | ED Physician Documentation ---
PD HPI ABD PAIN - Stated complaint Stated Complaint: RT SIDE/ABD PX,NAUSEA - Chief complaint Chief Complaint: Abd Pain - History obtained from History obtained from: Patient - History of Present Illness Timing - onset: Enter time (0500), Today Timing - duration: Hours Timing - details: Abrupt onset, Still present Quality: Sharp, Pain Location: RUQ Radiation: Right flank Improved by: Laying still Worsened by: Moving, Position, Palpation Associated symptoms: Nausea. No: Fever, Vomiting Similar symptoms before: Has not had sx before Recently seen: Not recently seen - Additional information Additional information: Paris Calderon is a 28-year-old female who indicates that she was up most of the night at about 5:00 in the morning she went to [place] she began to experience some pain in her right flank. She is also complaining of some urinary urgency and dysuria. She has not had fever she has had some nausea associated with this. She is worse if she is moving for palpating the area. Review of Systems Constitutional: reports: Myalgias, Sweats. denies: Fever Eyes: denies: Decreased vision Ears: denies: Ear pain Nose: denies: Rhinorrhea / runny nose, Congestion Throat: denies: Oral lesions / sores, Sore throat Cardiac: denies: Chest pain / pressure, Palpitations Respiratory: reports: Cough (mild similar to prior). denies: Dyspnea GI: reports: Nausea. denies: Vomiting : reports: Dysuria, Frequency Skin: denies: Rash Musculoskeletal: reports: Back pain. denies: Neck pain, Extremity pain Neurologic: denies: Generalized weakness, Focal weakness, Numbness PD PAST MEDICAL HISTORY - Past Medical History Cardiovascular: None Respiratory: None Endocrine/Autoimmune: None GI: Other : None HEENT: None Psych: Panic attacks Musculoskeletal: None Derm: None - Past Surgical History Past Surgical History: Yes - Present Medications Home Medications: Ambulatory Orders Medication Instructions Recorded Confirmed Albuterol Sulf [Ventolin Hfa 1 - 2 puffs INH Q4HR PRN #1 each 09/17/23 12/28/23 Inhaler] cephALEXin [Keflex] 500 mg PO Q6H #28 cap 12/28/23 - Allergies Allergies/Adverse Reactions: Allergies Allergy/AdvReac Type Severity Reaction Status Date / Time ondansetron HCl * AdvReac Nausea Verified 12/28/23 07:52 [From Zofran (as hydrochloride)] - Social History Does the pt smoke?: No Smoking Status: Never smoker Does the pt drink ETOH?: No Does the pt have substance abuse?: Yes Substance Use and Type: Marijuana - Immunizations Immunizations are current?: No - POLST Patient has POLST: No PD ED PE NORMAL - Vitals Vital signs reviewed: Yes (normal ) - General General: Alert and oriented X 3, No acute distress, Well developed/nourished - HEENT HEENT: Atraumatic, PERRL, EOMI - Neck Neck: Supple, no meningeal sign, No bony TTP - Cardiac Cardiac: RRR, No murmur - Respiratory Respiratory: No respiratory distress, Clear bilaterally - Abdomen Abdomen: Normal bowel sounds, Soft, Non distended, No organomegaly, Other (mild right flank pain to bimanual palpation ) - Back Back: No spinal TTP, Other (R CVA tenderness is mild ) - Derm Derm: Normal color, Warm and dry, No rash - Extremities Extremities: No deformity, No edema - Neuro Neuro: Alert and oriented X 3, 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3 Neut # (Auto) 9.8 H Lymph # (Auto) 2.2 Hunt # (Auto) 0.8 Eos # (Auto) 0.1 Baso # (Auto) 0.1 Absolute Nucleated RBC 0.00 Nucleated RBC % 0.0 Sodium 138 Potassium 4.1 Chloride 104 Carbon Dioxide 30 Anion Gap 4.0 L BUN 12 Creatinine 0.8 Estimated GFR (MDRD) 85 L Glucose 110 H Calcium 9.6 Total Bilirubin 0.2 AST 13 ALT 11 Alkaline Phosphatase 83 Total Protein 7.2 Albumin 4.2 Globulin 3.0 Albumin/Globulin Ratio 1.4 Lipase 42 Urine Color YELLOW Urine Clarity CLEAR Urine pH 5.5 Ur Specific [place] >=1.030 H Urine Protein NEGATIVE Urine Glucose (UA) NEGATIVE Urine Ketones NEGATIVE Urine Occult Blood MODERATE H Urine Nitrite POSITIVE H Urine Bilirubin NEGATIVE Urine Urobilinogen 0.2 (NORMAL) Ur Leukocyte Esterase TRACE H Urine RBC 6-10 H Urine WBC 11-25 H Ur Squamous Epith Cells MOD Squamous H Urine Bacteria Moderate H Ur Microscopic Review INDICATED Urine Culture Comments NOT INDICATED Urine HCG, Qual NEGATIVE - Rads (name of study) CT Relevant Findings:: Prelim report reviewed (Impression: Cholelithiasis without Choleducolithiasis or cholecystitis no renal or ureteral calculi moderate colonic stool.), EMP independent interpretation of test, See rad report PD Medical Decision Making - ED course Complexity details: reviewed results, re-evaluated patient, considered differential, d/w patient Reviewed Lab Results: We reviewed a complete blood count showing an elevated white blood cell count of 12.9 a nearly normal hemoglobin of 11.9 hematocrit 37.6 and platelets of 403,000 her blood counts are near where they normally are. Chemistries show normal electrolytes normal BUN and creatinine normal kidney and liver function urinalysis shows concentrated urine with specific gravity of 1.030 moderate occult blood positive for urine nitrite trace leukocyte Estrace 6-10 red blood cells per high-power field 11-25 white blood cells per high-powered field and moderate bacteria and moderate squamous. The urinalysis appears to show infected urine however did did not make the grade for culture. Patient is not . I interpreted these results to indicate the patient has a urinary tract infection and likely pyelonephritis. ED course: Carrie Calderon is a 28-year-old female who presented to the emergency department with right flank pain concerning for the possibility of a kidney stone she had pain to palpation and pain with movement. She is found to have evidence of urinary tract infection by evaluation of the urine and has a negative CT scan for evidence renal/uretero stone. She does have 2 large stones in her gallbladder and there is not evidence of cholecystitis or choledocholithiasis. She is nontender over her gallbladder. She is diagnosed with kidney infection and given a liter of saline and IV Rocephin as well. She had improvement in her pain with IM Toradol. Departure - Departure Disposition: 01 Home, Self Care Clinical Impression: Pyelonephritis Condition: Stable Instructions: ED Kidney Infec Female [facility]: [facility] [Provider Group] Prescriptions: cephALEXin [Keflex] 500 mg PO Q6H #28 cap Comments: Carrie, today it looks like the pain you are having in your side is related to an infection in the kidney. Recommendation is to drink excessive amounts of fluid to flush the entire system and to take the antibiotic as prescribed. I have E scribed some Keflex to the community pharmacy here in [place]. Our expectations with treatment are improvement in your pain and symptoms over the next 2 to 5 days. Your urine did make the grade for culture and if you get a call from us in 2 days time it is because the antibiotic we placed you on will not be sufficient. There was an incidental finding on your CT scan of 2 large gallstones. This may eventually cause you a problem and follow-up with surgeon is indicated. I have given you the surgical centers telephone number and my recommendation is to call them to make an appointment for follow-up. As far as this specific illness goes if you are having worsening fever vomiting worsening pain a follow-up here or with your primary is indicated and I have given you a number of physicians to follow-up with. Forms: PCP List Discharge Date/Time: 12/28/23 11:44
[2023-12-28] MEDS: cefTRIAXone 1 GM in SODIUM CHLORIDE 0.9% MINIBAG 100 ML IV STA (11:03)
[2023-12-28 11:49] VITALS: BP 100/68
== END 2023-12-28 11:44 | disposition home or self-care (01) ==
LOC: ED 07:41
DX: N12 Tubulo-interstitial nephritis, not specified as acute or chronic (principal); K80.20 Calculus of gallbladder without cholecystitis without obstruction
CPT/HCPCS: 36415; 80053; 81001; 81003; 81025; 83690; 85025; 87086; 96365; 96375; 99284

== ENCOUNTER 2024-03-21 12:13 | Outpatient (CLI) | payer MEDICAID ==
--- NOTE | 2024-03-21 15:20 | XRAY Report ---
PROCEDURE: Chest 2V INDICATIONS: CHRONIC COUGH TECHNIQUE: 2 views of the chest were acquired. COMPARISON: chest x-ray 09/17/2023 FINDINGS: Surgical changes and devices: None. Lungs and pleura: No pleural effusions or pneumothorax. Lungs are clear. Mediastinum: Mediastinal contours appear normal. Heart size is normal. Bones and chest wall: No suspicious bony lesions. Overlying soft tissues appear unremarkable. IMPRESSION: No acute cardiopulmonary process. Reviewed by: Yordan Damon MD on 03/21/2024 3:19 PM PDT Approved by: Yordan Damon MD on 03/21/2024 3:19 PM PDT Station ID: [id number]
== END 2024-03-21 12:14 | disposition home or self-care (01) ==
LOC: DI 12:13
DX: R05.3 Chronic cough (principal)